=== PATIENT | female | born 1945 | race Caucasian/White ===

== ENCOUNTER → 2020-06-24 | Outpatient (CLI) | payer MEDICARE | LOC: HEART 5 13:17 | DX: I08.2 Rheumatic disorders of both aortic and tricuspid valves (principal) | CPT/HCPCS: 93306 ==

== ENCOUNTER → 2021-01-13 | Day surgery (SDC) | payer MEDICARE ==
[~2021-01-13] MED LIST: CALCIUM + D3 E1 EACH PO; DILTIAZEM 24HR180 M1 PO; MAGNESIUM250 M1 PO; METFORMIN HCL1000 MG PO; ONE TOUCH ULTR1 EACH MC; PRADAXA 150 MG150 MG PO; ST. JOSEPH ASPI81 M1 PO; VALSARTAN-HCTZ1 EAC3 PO; VITAMIN B-121000 MCG PO
== END | disposition home or self-care (01) ==
LOC: CATH 10:00
DX: I08.3 Combined rheumatic disorders of mitral, aortic and tricuspid valves (principal); I48.0 Paroxysmal atrial fibrillation; I25.2 Old myocardial infarction; Z98.51 Tubal ligation status; I25.10 Atherosclerotic heart disease of native coronary artery without angina pectoris; E78.5 Hyperlipidemia, unspecified; E11.9 Type 2 diabetes mellitus without complications; Z79.84 Long term (current) use of oral hypoglycemic drugs; Z79.82 Long term (current) use of aspirin; I11.9 Hypertensive heart disease without heart failure; I27.20 Pulmonary hypertension, unspecified; Z20.822 Contact with and (suspected) exposure to COVID-19
CPT/HCPCS: 82962; 93005; 93312; 93320; J2250; J2310; J3010

== ENCOUNTER → 2021-01-27 | Outpatient (CLI) | payer MEDICARE ==
[2021-01-27 16:38] LABS: HEMOGLOBIN 13.1 gm/dl (12.3-15.3); RED BLOOD COUNT 4.5 M/UL (4.00-5.10); WHITE BLOOD COUNT 10.5 K/UL (4.5-11.0)
[2021-01-27 17:00] LABS: BUN/CREATININE RATIO 30 (0-10)
== END ==
LOC: LAB 16:11
PROVIDERS: Internal Medicine Interventional Cardiology
DX: I25.10 Atherosclerotic heart disease of native coronary artery without angina pectoris (principal); I35.0 Nonrheumatic aortic (valve) stenosis; I10 Essential (primary) hypertension; E78.5 Hyperlipidemia, unspecified; I48.0 Paroxysmal atrial fibrillation; E11.9 Type 2 diabetes mellitus without complications
CPT/HCPCS: 80048; 85025; 85610; 85730

== ENCOUNTER → 2021-02-04 | Outpatient (CLI) | payer MEDICARE | LOC: CATH 08:02 | DX: I20.8 Other forms of angina pectoris (principal); I35.0 Nonrheumatic aortic (valve) stenosis; I10 Essential (primary) hypertension; I27.20 Pulmonary hypertension, unspecified; I48.0 Paroxysmal atrial fibrillation; E11.9 Type 2 diabetes mellitus without complications; Z88.8 Allergy status to other drugs, medicaments and biological substances; Z79.82 Long term (current) use of aspirin; Z79.84 Long term (current) use of oral hypoglycemic drugs; Z79.899 Other long term (current) drug therapy | CPT/HCPCS: 82810; 82962; 99152; 99153; C1751; C1769; J1644; J2250; J3010; J7030; Q9967 ==